=== PATIENT | female | born 1945 | race Caucasian/White ===

== ENCOUNTER 2022-02-02 11:28 | Inpatient (IN) | payer MEDICARE, OTHER ==
[~2022-02-02] VITALS: Ht 165.1 cm; Wt 65.0 kg
[~2022-02-02 11:28] MED LIST: ASPIRIN EC81 MG PO; CLARITIN10 MG PO; ELIQUIS5 MG PO; HCTZ12.5 MG PO; LOPRESSOR50 MG PO; PRINIVIL10 MG PO
[2022-02-02 13:12] LABS: INR 1.18 (0.9-1.2); PROTHROMBIN TIME 14.4 SECONDS (11.8-13.4); PTT 26.8 SECONDS (24.4-34.7)
[2022-02-02 13:46] LABS: CORONAVIRUS 2019 SARS-COV-2 NEGATIVE (NEGATIVE); INFLUENZA A NAA NEGATIVE (NEGATIVE)
[2022-02-02 13:53] LABS: BASOPHIL 0.7 % (0-2); EOSINOPHIL 3.4 % (0-7); HCT 51.1 % (37.0-47.0); HGB 17.3 g/dl (12.5-16.0); LYMPHOCYTE 20.9 % (15-48); MCHC 33.9 g/dL (32.0-36.0); MCV 100.4 fL (78.0-100.0); MONOCYTE 6.3 % (0-12); MPV 9.9 fL (6.0-9.5); NEUTROPHIL 68.5 % (41-80); NRBC 0; PLT 209 K/uL (150-400); RBC 5.09 M/uL (4.20-5.40); RDW 13.3 % (11.5-14.0); WBC 8.6 K/uL (4.0-10.5)
[2022-02-02 14:28] LABS: ALBUMIN 3.4 g/dL (3.4-5.0); BILIRUBIN - TOTAL 0.7 mg/dL (0.2-1.0); BUN/CREAT RATIO (CALC) 15.4 RATIO; CREATININE 1.3 mg/dL (0.51-0.95); FT4 (FREE T4) 1.4 ng/dL (0.76-1.46); GLOBULIN (CALCULATION) 4.3 g/dL; POTASSIUM 4.2 mmol/L (3.5-5.1); TOTAL PROTEIN 7.7 g/dL (6.4-8.2)
[2022-02-02 14:47] LABS: IRON % SATURATION 28.3 %SAT (20-50)
[2022-02-02 14:58] LABS: LACTIC ACID 1.1 mmol/L (0.4-1.9)
[2022-02-02 15:16] LABS: BILIRUBIN NEGATIVE (NEGATIVE); BLOOD 2+ Ery/uL (NEGATIVE); CLARITY CLEAR (CLEAR); COLOR YELLOW (YELLOW); GLUCOSE (U) NORMAL (NORMAL); LEUKOCYTES NEGATIVE Leu/uL (NEGATIVE); NITRITE NEGATIVE (NEGATIVE); PROTEIN NEGATIVE (NEGATIVE); SPECIFIC GRAVITY 1.015 (1.001-1.030); UROBILINOGEN 0.2 mg/dL (0.2-1.0)
[2022-02-02 15:50] LABS: URINARY WBC RARE
[2022-02-02 15:53] LABS: BACTERIA TRACE; SQUAMOUS EPITHELIAL CELLS RARE
[2022-02-03 06:27] LABS: BASOPHIL 0.5 % (0-2); EOSINOPHIL 0 % (0-7); HCT 48.3 % (37.0-47.0); HGB 15.9 g/dl (12.5-16.0); LYMPHOCYTE 19.8 % (15-48); MCH 33.3 pg (25.0-31.0); MCHC 32.9 g/dL (32.0-36.0); MONOCYTE 0.8 % (0-12); MPV 10.2 fL (6.0-9.5); NEUTROPHIL 78.4 % (41-80); NRBC 0; PLT 178 K/uL (150-400); RBC 4.78 M/uL (4.20-5.40); RDW 13.2 % (11.5-14.0)
[2022-02-03 06:37] LABS: WBC 3.9 K/uL (4.0-10.5)
[2022-02-03 06:43] LABS: BUN/CREAT RATIO (CALC) 19.7 RATIO; CREATININE 1.17 mg/dL (0.51-0.95); MAGNESIUM 1.9 mg/dL (1.8-2.4); POTASSIUM 3.9 mmol/L (3.5-5.1)
[2022-02-04 06:17] LABS: BASOPHIL 0.1 % (0-2); EOSINOPHIL 0 % (0-7); HCT 45.8 % (37.0-47.0); HGB 15.1 g/dl (12.5-16.0); LYMPHOCYTE 8.2 % (15-48); MONOCYTE 2.1 % (0-12); MPV 10.3 fL (6.0-9.5); NEUTROPHIL 88.1 % (41-80); NRBC 0; PLT 189 K/uL (150-400); RBC 4.58 M/uL (4.20-5.40); RDW 13.1 % (11.5-14.0)
[2022-02-04 06:31] LABS: WBC 11.7 K/uL (4.0-10.5)
[2022-02-04 06:41] LABS: BUN/CREAT RATIO (CALC) 24.8 RATIO; CREATININE 1.29 mg/dL (0.51-0.95); MAGNESIUM 1.9 mg/dL (1.8-2.4); POTASSIUM 4.1 mmol/L (3.5-5.1)
[2022-02-04] MEDS ORDERED: HCTZ12.5 MG PO (10:41)
[2022-02-04] MEDS ORDERED: PREDNISONE 20MG20 MG PO (10:45)
[2022-02-04] MEDS ORDERED: LEXAPRO 10MG TA10 MG PO (10:45)
[2022-02-04] MEDS ORDERED: POTASSIUM CHLO20 ME2 PO (10:45)
[2022-02-04] MEDS ORDERED: MAG-OXIDE 400M400 MG PO (10:45)
[2022-02-04] MEDS ORDERED: VENTOLIN HFA IN18 GM INH (10:46)
[2022-02-04] MEDS ORDERED: BETAPACE80 MG PO (10:52)
== END 2022-02-04 12:00 | disposition home or self-care (01) | DRG 309 ==
LOC: FER 11:28 → FTCU 16:08
PROVIDERS: Emergency Medicine; Internal Medicine Cardiovascular Disease; ADMIT Internal Medicine
PROC: B24BZZZ Ultrasonography of Heart with Aorta (ICD-10-PCS; principal; 2022-02-03)
DX: I48.0 Paroxysmal atrial fibrillation (principal); J44.1 Chronic obstructive pulmonary disease with (acute) exacerbation; F17.210 Nicotine dependence, cigarettes, uncomplicated; F41.1 Generalized anxiety disorder; I11.9 Hypertensive heart disease without heart failure; Z20.822 Contact with and (suspected) exposure to COVID-19; Z79.899 Other long term (current) drug therapy; Z87.448 Personal history of other diseases of urinary system; Z98.890 Other specified postprocedural states; Z86.718 Personal history of other venous thrombosis and embolism; Z82.3 Family history of stroke; Z82.49 Family history of ischemic heart disease and other diseases of the circulatory system; Z98.41 Cataract extraction status, right eye; Z98.42 Cataract extraction status, left eye; Z79.01 Long term (current) use of anticoagulants
CPT/HCPCS: 36415; 71045; 80048; 80053; 81001; 83540; 83550; 83605; 83735; 83880; 84145; 84439; 84443; 84484; 85025; 85610; 85730; 93005; 94640; J2920; U0002